=== PATIENT | male | born 1980 | race Two or more races ===

== ENCOUNTER 2023-09-01 17:19 | Emergency (ER) | payer OTHER ==
[~2023-09-01] VITALS: Ht 170.2 cm; Wt 66.0 kg
[2023-09-01 17:28] VITALS: O2SAT 98
[2023-09-01 19:00] VITALS: TEMP 98.2
[2023-09-01] MEDS ORDERED: KETOROLAC 60MG/2ML VIAL IM ONE (19:00)
[2023-09-01] MEDS: IBUPROFEN 600MG TABLET PO ONE (19:00)
[2023-09-01] MEDS: TETANUS, DIPHTHERIA, PERTUSSIS VAC/PF 0.5ML (>10YR OLD) IM ONE (19:00)
[2023-09-01] MEDS: ACETAMINOPHEN 325MG TABLET PO ONE (19:00)
[2023-09-01] MEDS ORDERED: IBUP-1523 MT (20:34)
[2023-09-01] MEDS ORDERED: AMOX600S39 MT (20:34)
[2023-09-01] MEDS ORDERED: TOPUD MT (20:34)
[2023-09-01 21:10] VITALS: BP 109/68; PULSE 81; RESP 17
== END 2023-09-01 21:12 | disposition home or self-care (01) ==
LOC: ER 17:19
DX: S61.452A Open bite of left hand, initial encounter (principal); Z23 Encounter for immunization; W54.0XXA Bitten by dog, initial encounter; Y93.89 Activity, other specified; Y92.89 Other specified places as the place of occurrence of the external cause; Y99.8 Other external cause status
CPT/HCPCS: 73130; 90471; 90715; 99283